=== PATIENT | male | born 1955 | race Caucasian/White ===

== ENCOUNTER → 2017-12-18 | Outpatient (CLI) | payer OTHER | END | disposition home or self-care (01) | LOC: C.LABBC 07:29 | PROVIDERS: ATTEND Neuromusculoskeletal Medicine & OMM | DX: Z13.220 Encounter for screening for lipoid disorders (principal); Z13.1 Encounter for screening for diabetes mellitus; Z12.5 Encounter for screening for malignant neoplasm of prostate ==